=== PATIENT | female | born 1950 | race Caucasian/White ===

== ENCOUNTER 2021-07-26 09:47 | Outpatient (CLI) | payer MEDICARE | END 2021-07-26 09:48 | disposition home or self-care (01) | LOC: BICRAD 09:47 | PROVIDERS: ATTEND Specialist | DX: M51.17 Intervertebral disc disorders with radiculopathy, lumbosacral region (principal); M96.1 Postlaminectomy syndrome, not elsewhere classified; M51.36 Other intervertebral disc degeneration, lumbar region; Z98.1 Arthrodesis status; Z98.890 Other specified postprocedural states | CPT/HCPCS: 72110 ==

== ENCOUNTER 2022-02-08 02:44 | Emergency (ER) | payer MEDICARE ==
[2022-02-08] MEDS ORDERED: Aspirin Chewable 81 MG TAB ONE (03:23)
[2022-02-08 03:45] LABS: ALT (SGPT) 17 U/L (8-55); AST (SGOT) 43 U/L (5-34); Alkaline Phosphatase 93 U/L (40-110); Anion Gap 17 mmol/L (10-20); BUN (Urea Nitrogen) 24 mg/dL (9.8-20.1); Bilirubin, Total 0.4 mg/dL (0.2-1.2); Calc. Creatinine Clearance 0 mL/min (70-130); Calcium 9.6 mg/dL (7.8-10.44); Carbon Dioxide 26 mmol/L (23-31); Chloride 99 mmol/L (98-107); Globulin 4.3 g/dL (2.4-3.5); Glucose 99 mg/dL (83-110); Lipase 16 U/L (8-78); Magnesium 1.3 mg/dL (1.6-2.6); Potassium 5.5 mmol/L (3.5-5.1); Protein, Total 8.3 g/dL (5.8-8.1); Sodium 136 mmol/L (136-145)
[2022-02-08 04:22] LABS: Band 7 % (5-11); Eosinophils 6 % (0-10); Lymphocytes 44 % (21-51); MDiff Complete? YES; Mean Corpuscular HGB CONC 33.3 g/dL (32.0-36.0); Mean Corpuscular Hemoglobin 32.5 pg (27.0-31.0); Mean Corpuscular Volume 97.4 fL (78.0-98.0); Mean Platelet Volume 7.6 fL (7.4-10.4); Monocytes 8 % (0-10); Neutrophil 35 % (42-75); Platelet Count 174 thou/uL (130-400); RBC Distribution Width 12.5 % (11.5-14.5)
[2022-02-08 06:51] LABS: Troponin I Less than 0.010 ng/mL (< 0.028)
== END 2022-02-08 07:15 | disposition home or self-care (01) ==
LOC: ERS 02:44
DX: R07.2 Precordial pain (principal); I10 Essential (primary) hypertension; E78.5 Hyperlipidemia, unspecified; Z79.82 Long term (current) use of aspirin; Z79.890 Hormone replacement therapy; Z79.899 Other long term (current) drug therapy
CPT/HCPCS: 36415; 71045; 80053; 83690; 83735; 83880; 84484; 85025; 85379; 93005

== ENCOUNTER 2022-09-30 10:44 | Outpatient (CLI) | payer MEDICARE | END 2022-09-30 10:45 | disposition home or self-care (01) | LOC: ULT 10:44 | PROVIDERS: ATTEND Specialist | DX: E07.89 Other specified disorders of thyroid (principal); E04.1 Nontoxic single thyroid nodule | CPT/HCPCS: 76536 ==

== ENCOUNTER 2023-05-05 08:07 | Emergency (ER) | payer MEDICARE ==
[2023-05-05] MEDS ORDERED: Ondansetron PF 4 MG/2 ML Vial ONE (09:14)
[2023-05-05 09:48] LABS: #Eosinphils 0.1 thou/uL (0.0-0.7); #Monocytes 0.7 thou/uL (0.11-0.59); #Neutrophils 7.5 thou/uL (1.40-6.50); %Basophils 0.2 % (0.0-1.0); %Eosinophils 0.8 % (0.0-10.0); %Lymphocytes 10.1 % (21.0-51.0); %Monocytes 7.4 % (0.0-10.0); %Neutrophils 80.8 % (42.0-75.0); Hematocrit 35.6 % (36.0-47.0); Hemoglobin 12.2 g/dL (12.0-16.0); Mean Corpuscular HGB CONC 34.3 g/dL (32.0-36.0); Mean Corpuscular Hemoglobin 33.2 pg (27.0-31.0); Mean Corpuscular Volume 96.7 fl (78.0-98.0); Mean Platelet Volume 10.1 fL (7.4-10.4); Platelet Count 223 10x3/uL (130-400); RBC Distribution Width 13.9 % (11.5-14.5); Red Blood Cell (RBC) Count 3.68 mill/uL (4.20-5.40); White Blood Cell (WBC) Count 9.2 10x3/uL (4.8-10.8)
[2023-05-05 10:39] LABS: ALT (SGPT) 17 U/L (8-55); AST (SGOT) 39 U/L (5-34); Albumin 4.2 g/dL (3.4-4.8); Alkaline Phosphatase 103 U/L (40-110); Anion Gap 18 mmol/L (10-20); BUN (Urea Nitrogen) 29 mg/dL (9.8-20.1); Bilirubin, Total 0.8 mg/dL (0.2-1.2); Calc. Creatinine Clearance 0 mL/min (70-130); Calcium 10.3 mg/dL (7.6-10.4); Carbon Dioxide 30 mmol/L (23-31); Chloride 88 mmol/L (98-107); Estimated GFR 29; Globulin 3.4 g/dL (2.4-3.5); Glucose 101 mg/dL (83-110); Potassium 3.6 mmol/L (3.5-5.1); Protein, Total 7.6 g/dL (5.8-8.1); Sodium 132 mmol/L (136-145)
[2023-05-05 11:01] LABS: Bacteria/HPF 4+ HPF (None Seen); Bilirubin Negative (Negative); Blood, Urine 1+ (Negative); CAUTI Indications for Culture Alt mental st,lethar; Clarity Turbid (Clear); Glucose, Urine (Dipstick) Normal (Negative); Ketone, Urine Negative (Negative); Leukocyte 500 Leu/uL (Negative); Nitrite Negative (Negative); Protein, Urine (Dipstick) 10 mg/dL (Neg-Trace); Specific Gravity, Urine 1.007 (1.002-1.036); Urobilinogen Normal mg/dL (Less than 2); WBC/HPF Greater than 50 HPF (0-3)
[2023-05-05 11:18] LABS: CK (CPK) 601 U/L (29-168)
[2023-05-05 11:19] LABS: Renal Epithelial 0-3 HPF (None Seen); Transitional Epithelial 0-3 HPF (None Seen)
[2023-05-05 11:20] LABS: Unclassified Crystals None Seen HPF (None Seen); Yeast-Budding None Seen HPF (None Seen)
[2023-05-05 11:21] LABS: Urine Culture Reflex Yes Yes
== END 2023-05-05 11:25 | disposition home or self-care (01) ==
LOC: ERS 08:07
DX: R11.2 Nausea with vomiting, unspecified (principal); I10 Essential (primary) hypertension; E78.5 Hyperlipidemia, unspecified; Z87.891 Personal history of nicotine dependence; Z79.82 Long term (current) use of aspirin; Z79.899 Other long term (current) drug therapy
CPT/HCPCS: 36415; 80053; 81001; 82550; 85025; 87077; 87086; 93005; 96361; 96374; J2405